=== PATIENT | male | born 1995 | race Caucasian/White ===

== ENCOUNTER 2016-09-05 17:32 | Emergency (ER) | payer BC ==
[~2016-09-05] VITALS: Ht 177.8 cm; Wt 70.3 kg
[~2016-09-05 17:32] MED LIST: AMOX-355 PO; MPR22T TOP; SULF1TAB38 PO
--- NOTE | 2016-09-05 18:09 | ED General ---
General Chief Complaint: Fever-Adult/Adol Stated Complaint: FEVER Nursing Triage Note: AMBULATED TO ROOM 05 WITH COMPLAINTS OF FEVER STARTING YESTERDAY. STATES HE WAS XOCHITL ON TUESDAY AND DID NOT FEEL WELL AFTER. STATES HE HAD A TICK BITE TO THE PENIS WITHIN THE LAST WEEK THAT HE HAD TO PULL OFF BUT DOES NOT THINK IT WAS ATTACHED LONG. ANTIPYRITIC TAKEN THIS AM. PT COMPLAINS OF A HEADACHE. Nursing Sepsis Screen: No Definite Risk Source of Information: Patient Exam Limitations: No Limitations History of Present Illness Time Seen by Provider: 18:09 Initial Comments 21 yo male patient presents to the ED with c/o fever of 105 degrees F starting last night. States 1 wk ago he pulled a tick from his penis. Throughout the week he was xochitl and did have 1 episode of dizziness. Took tylenol this AM. Does have a headache, but denies neck pain. denies rash. Timing/Duration: 1 Day, Getting Worse Modifying Factors: worse with Other (denies modifying factors) Allergies and Home Medications Allergies Coded Allergies: clindamycin (Unverified Allergy, Unknown, 09/05/16) Uncoded Allergies: ENVIRONMENTAL (Allergy, Mild, 02/22/09) Home Medications Doxycycline Hyclate 100 Mg Capsule, 100 MG PO BID, #28 Ref 0 Prescribed by: MARÍA ELENA ZIMMERMAN on 09/05/162115 Ondansetron 8 Mg Tab.rapdis, 8 MG PO Q6H PRN for NAUSEA/VOMITING-1ST LINE, #10 Ref 0 Prescribed by: MARÍA ELENA ZIMMERMAN on 09/05/162115 Constitutional: see HPI, chills, dizziness (1 episode Tuesday.), fever, malaise , weakness EENTM: no symptoms reported Respiratory: No cough, No phlegm, No short of breath Cardiovascular: no symptoms reported Gastrointestinal: No abdominal pain, No diarrhea, No nausea, No vomiting Genitourinary: No decreased output, No dysuria, No frequency, No hematuria, No pain Musculoskeletal: other (generalized bodyaches) Skin: see HPI, No lesions, No lumps, No pruritus, No rash Psychiatric/Neurological: Headache, Denies Numbness, Denies Paresthesia, Denies Seizure, Denies Tingling, Denies Weakness All Other Systems Reviewed Negative Unless Noted: Yes (Negative excepted noted.) Past Lwrqvtn-Tafmtj-Gdkunt Hx Patient Social History Alcohol Use: Denies Use Recreational Drug Use: No Smoking Status: Never a Smoker Recent Foreign Travel: No Contact w/Someone Who Travel: No Recent Infectious Disease Expo: No Immunizations Up To Date Tetanus Booster (TDap): Less than 5yrs Seasonal Allergies Seasonal Allergies: Yes Surgeries HX Surgeries: No Respiratory Hx Respiratory Disorders: No Cardiovascular Hx Cardiac Disorders: Yes (SVT AT ) Neurological Hx Neurological Disorders: No Genitourinary Hx Genitourinary Disorders: No Gastrointestinal Hx Gastrointestinal Disorders: No Musculoskeletal Hx Musculoskeletal Disorders: No Endocrine Hx Endocrine Disorders: No HEENT HX ENT Disorders: No Cancer Hx Cancer: No Psychosocial Hx Psychiatric Problems: No Integumentary HX Skin/Integumentary Disorder: No Blood Transfusions Hx Blood Disorders: No Reviewed Nursing Assessment Reviewed/Agree w Nursing PMH: Yes Family Medical History Significant Family History: No Pertinent Family Hx Physical Exam-Suspected Sepsis Physical Exam Vital Signs Vital Sign - Last 12Hours 09/05/16 17:40 Temp 104.2 Pulse 91 Resp 18 B/P (MAP) 129/73 Pulse Ox 99 Capillary Refill : Less Than 3 Seconds Blood Pressure Mean: 91 General Appearance: No Apparent Distress, WD/WN HEENT: PERRL/EOMI, TMs Normal, Normal ENT Inspection, Pharynx Normal Neck: Full Range of Motion, Non Tender, Supple, Lymphadenopathy (L), Lymphadenopathy (R), No Other (negative for nuchal rigidity.) Respiratory: Lungs Clear, Normal Breath Sounds, No Respiratory Distress Cardiovascular: Regular Rate, Rhythm, No Edema, No Murmur, Normal Peripheral Pulses Gastrointestinal: Normal Bowel Sounds, No Organomegaly, Non Tender, Soft, No Distended Back: Normal Inspection, No CVA Tenderness Extremity: Normal Capillary Refill, Normal Inspection Neurologic/Psychiatric: Alert, Oriented x3, No Motor/Sensory Deficits, Normal Mood/Affect, welt treater II-XII Norm as Tested Skin: normal color, warm/dry Focused Exam Lactic Acid Level Progress/Results/Core Measures Suspected Sepsis Recent Fever Within 48 Hours: Yes Infection Criteria Present: None New/Unexplained Altered Menta: No Sepsis Screen: No Definite Risk Sepsis Diagnosis: SIRS Temperature:104.2 Pulse: 91 Respiratory Rate: 18 Laboratory Tests 09/05/16 18:10: White Blood Count 2.2L Blood Pressure 129 /73 Mean: 91 Laboratory Tests 09/05/16 18:10: Creatinine 0.96, INR Comment 1.3, Platelet Count 107L, Total Bilirubin 1.2H Results/Orders Lab Results Laboratory Tests Test 09/05/16 17:19 09/05/16 18:10 09/05/16 19:00 Range/Units White Blood Count 2.2 L 4.3-11.0 10^3/uL Red Blood Count 4.97 4.35-5.85 10^6/uL Hemoglobin 14.5 13.3-17.7 G/DL Hematocrit 42 40-54 % Mean Corpuscular Volume 85 80-99 FL Mean Corpuscular Hemoglobin 29 25-34 PG Mean Corpuscular Hemoglobin Concent 34 32-36 G/DL Red Cell Distribution Width 13.3 10.0-14.5 % Platelet Count 107 L 130-400 10^3/uL Mean Platelet Volume 10.3 7.4-10.4 FL Neutrophils (%) (Auto) 62 42-75 % Lymphocytes (%) (Auto) 20 12-44 % Monocytes (%) (Auto) 17 H 0-12 % Eosinophils (%) (Auto) 1 0-10 % Basophils (%) (Auto) 1 0-10 % Neutrophils # (Auto) 1.3 L 1.8-7.8 X 10^3 Lymphocytes # (Auto) 0.4 L 1.0-4.0 X 10^3 Monocytes # (Auto) 0.4 0.0-1.0 X 10^3 Eosinophils # (Auto) 0.0 0.0-0.3 10^3/uL Basophils # (Auto) 0.0 0.0-0.1 10^3/uL Erythrocyte Sedimentation Rate 4 0-15 MM/HR Prothrombin Time 15.6 H 12.2-14.7 SEC INR Comment 1.3 0.8-1.4 Activated Partial Thromboplast Time 34 24-35 SEC Sodium Level 136 135-145 MMOL/L Potassium Level 3.9 3.6-5.0 MMOL/L Chloride Level 102 98-107 MMOL/L Carbon Dioxide Level 25 21-32 MMOL/L Anion Gap 9 5-14 MMOL/L Blood Urea Nitrogen 13 7-18 MG/DL Creatinine 0.96 0.60-1.30 MG/DL Estimat Glomerular Filtration Rate > 60 BUN/Creatinine Ratio 14 Glucose Level 103 70-105 MG/DL Lactic Acid Level 0.65 0.50-2.00 MMOL/L Calcium Level 8.8 8.5-10.1 MG/DL Total Bilirubin 1.2 H 0.1-1.0 MG/DL Aspartate Amino Transf (AST/SGOT) 35 H 5-34 U/L Alanine Aminotransferase (ALT/SGPT) 31 0-55 U/L Alkaline Phosphatase 57 40-136 U/L Total Creatine Kinase 98 30-200 U/L C-Reactive Protein High Sensitivity 1.70 H 0.00-0.50 MG/DL Total Protein 6.7 6.4-8.2 G/DL Albumin 3.9 3.2-4.5 G/DL Urine Color YELLOW Urine Clarity CLEAR Urine pH 7 5-9 Urine Specific [place] 1.010 L 1.016-1.022 Urine Protein 1+ H NEGATIVE Urine Glucose (UA) NEGATIVE NEGATIVE Urine Ketones 1+ H NEGATIVE Urine Nitrite NEGATIVE NEGATIVE Urine Bilirubin NEGATIVE NEGATIVE Urine Urobilinogen 4 H NORMAL MG/DL Urine Leukocyte Esterase 1+ H NEGATIVE Urine RBC (Auto) 2+ H NEGATIVE Urine RBC 5-10 H /HPF Urine WBC RARE /HPF Urine Squamous Epithelial Cells NONE /HPF Urine Crystals NONE /LPF Urine Bacteria NEGATIVE /HPF Urine Casts NONE /LPF Urine Mucus NEGATIVE /LPF Urine Culture Indicated NO My Orders Orders - MARÍA ELENA ZIMMERMAN Cbc With Automated Diff (09/05/16 18:08) Comprehensive Metabolic Panel (09/05/16 18:08) Lactic Acid Analyzer (09/05/16 18:08) Blood Culture (09/05/16 18:08) Sputum Culture (09/05/16 18:08) Ua Culture If Indicated (09/05/16 18:08) Protime With Inr (09/05/16 18:08) Partial Thromboplastin Time (09/05/16 18:08) Chest 1 View, Ap/Pa Only (09/05/16 18:08) Acetaminophen Tablet (Tylenol Tablet) (09/05/16 18:15) Saline Lock/Iv-Start (09/05/16 18:08) Ekg Tracing (09/05/16 18:08) Ns Iv 1000 Ml (Sodium Chloride 0.9%) (09/05/16 18:15) Vital Signs Adult Sepsis Patie Q1HR (09/05/16 18:08) Remove Rings In Anticipation O (09/05/16 18:08) Ondansetron Injection (Zofran Injectio (09/05/16 18:30) Tick Panel With Lyme Eia (09/05/16 18:39) Doxycycline Injection (Vibramycin Inject (09/05/16 18:45) Creatine Kinase (09/05/16 19:39) Hs C Reactive Protein (09/05/16 19:39) Erythrocyte Sedimentation Rate (09/05/16 19:39) Ketorolac Injection (Toradol Injection) (09/05/16 21:11) Medications Given in ED Current Medications Medications Dose Ordered Sig/Robson Route Start Time Stop Time Status Last Admin Dose Admin Acetaminophen 1,000 mg ONCE PRN PO 09/05/16 18:15 09/05/16 18:25 DC 09/05/16 18:24 1,000 MG Doxycycline Hyclate 100 mg/ Sodium Chloride 100 ml @ 100 mls/hr ONCE ONCE IV 09/05/16 18:45 09/05/16 19:44 DC 09/05/16 19:22 100 MLS/HR Sodium Chloride 2,000 ml @ 1,000 mls/hr PRN PRN IV 09/05/16 18:15 09/05/16 18:25 1,000 MLS/HR Vital Signs/I&O Vital Sign - Last 12Hours 09/05/16 17:40 Temp 104.2 Pulse 91 Resp 18 B/P (MAP) 129/73 Pulse Ox 99 Capillary Refill : Less Than 3 Seconds Blood Pressure Mean: 91 ECG Initial ECG Impression Date: September 05, 2016 Initial ECG Impression Time: 18:20 Initial ECG Rate: 82 Initial ECG Rhythm: Normal Sinus Initial ECG Intervals: Normal Initial ECG Impression: Normal Initial ECG Comparisson: No Previous ECG Available Comment sinus rhythm. no STEMI or arrhythmia. ECG reviewed with Dr. Car. Diagnostic Imaging Diagonstic Imaging: Xray Plain Films/CT/US/NM/MRI: chest Comments FINDINGS: A portable upright view of the chest demonstrates the lungs to be clear. The heart, mediastinum, pulmonary vascularity and visualized bony thorax are normal. IMPRESSION: Normal chest. Dictated by: Dictated on workstation # [id number] Reviewed: Reviewed by Me (radiology report reviewed by me) Departure Communication Progress Notes 2100 patient case discussed with Dr. Flores. Dr. Flores recommends [facility] to home with oral doxycycline and f/u with Dr. Desai for recheck early this week. Laboratory findings, diagnostic study findings, and recommendations by Dr. Flores were discussed with the patient. Patient reports improvement in symptoms with IVF and medications. Patient does have a temp of 100.6. patient will be given 30 mg of toradol IV prior to discharge. All return precautions were discussed with the patient as well as described in the discharge instructions of this report. Patient voices understanding and agrees with the treatment plan. Patient ambulated from the emergency department without difficulty. Impression Impression: Primary Impression: Fever Additional Impressions: Leukopenia Tick bite Volume depletion Disposition: HOME, SELF-CARE Condition: Improved Departure-Patient Inst. Decision time for Depature: 21:14 Referrals: TED DESAI MD (PCP/Family) Primary Care Physician Patient Instructions: Dehydration, Adult (DC), Fever, Adult (DC), Tickborne Encephalitis (DC) Add. Discharge Instructions: All discharge instructions reviewed with patient and/or family. Voiced understanding. Medications as instructed. Tylenol Extra Strength 1000 mg by mouth every 6 hours as needed for pain, headache, or fever. Ibuprofen 800 mg by mouth every 8 hours as needed for pain, headache, or fever. Push fluids. Alternate water and Gatorade/Powerade. Avoid the heat for 3-4 days. Follow-up with Dr. Desai Tuesday for recheck, call first thing Tuesday for appointment time. Return to the emergency department immediately for worsened fever, headache, neck pain, vomiting, abdominal pain, shortness of air, chest pain, difficulty swallowing, changes in behavior, changes in vision, confusion, or any other concerns. Scripts Ondansetron (Ondansetron Odt) 8 Mg Tab.rapdis 8 MG PO Q6H Y for NAUSEA/VOMITING-1ST LINE, #10 TAB 0 Refills Prov: MARÍA ELENA ZIMMERMAN 09/05/16 Doxycycline Hyclate (Doxycycline Hyclate) 100 Mg Capsule 100 MG PO BID, #28 CAP 0 Refills Prov: MARÍA ELENA ZIMMERMAN 09/05/16 Work/School Note: Work Release Form Date Seen in the Emergency Department: September 05, 2016 Return to Work: Sep 09, 2016 Restrictions: No Restrictions MARÍA ELENA ZIMMERMAN September 05, 2016 18:09
[2016-09-05] MEDS ORDERED: ACETAMINOPHEN 500 MG TAB (TYLENOL) PO PRN (18:15)
[2016-09-05] MEDS ORDERED: NS IV 1000 ML 2,000 ML IV PRN (18:15)
[2016-09-05 18:23] LABS: BASOPHILS % (AUTO) 1 % (0-10); EOSINOPHILS % (AUTO) 1 % (0-10); LYMPHOCYTES # (AUTO) 0.4 X 10^3 (1.0-4.0); LYMPHOCYTES % (AUTO) 20 % (12-44); MEAN CORPUSCULAR HEMOGLOBIN 29 PG (25-34); MEAN CORPUSCULAR HGB CONC 34 G/DL (32-36); MEAN CORPUSCULAR VOLUME 85 FL (80-99); MEAN PLATELET VOLUME 10.3 FL (7.4-10.4); MONOCYTES # (AUTO) 0.4 X 10^3 (0.0-1.0); MONOCYTES % (AUTO) 17 % (0-12); NEUTROPHILS # (AUTO) 1.3 X 10^3 (1.8-7.8); NEUTROPHILS % (AUTO) 62 % (42-75); PLATELET COUNT 107 10^3/uL (130-400); RED BLOOD COUNT 4.97 10^6/uL (4.35-5.85); RED CELL DISTRIBUTION WIDTH 13.3 % (10.0-14.5); WHITE BLOOD COUNT 2.2 10^3/uL (4.3-11.0)
[2016-09-05] MEDS ORDERED: ONDANSETRON 4 MG/2 ML (SDV) Z0FRAN IVP ONE (18:30)
[2016-09-05 18:33] LABS: INR 1.3 (0.8-1.4); PROTHROMBIN TIME PATIENT 15.6 SEC (12.2-14.7)
[2016-09-05 18:44] LABS: ALANINE AMINOTRANSFERASE 31 U/L (0-55); ALBUMIN 3.9 G/DL (3.2-4.5); ANION GAP 9 MMOL/L (5-14); ASPARTATE AMINO TRANSFERASE 35 U/L (5-34); BILIRUBIN,TOTAL 1.2 MG/DL (0.1-1.0); BLOOD UREA NITROGEN 13 MG/DL (7-18); BUN/CREATININE RATIO 14; CALCIUM 8.8 MG/DL (8.5-10.1); CARBON DIOXIDE 25 MMOL/L (21-32); CHLORIDE 102 MMOL/L (98-107); CREATININE SERUM 0.96 MG/DL (0.60-1.30); GFR ESTIMATED > 60; GLUCOSE 103 MG/DL (70-105); POTASSIUM 3.9 MMOL/L (3.6-5.0); SODIUM 136 MMOL/L (135-145); TOTAL PROTEIN 6.7 G/DL (6.4-8.2)
[2016-09-05] MEDS ORDERED: DOXYCYCLINE INJECTION 100 MG in NS (IVPB) 100 ML IV ONE (18:45)
--- NOTE | 2016-09-05 18:45 | Diagnostic Imaging Report ---
INDICATION: Fever since last night. COMPARISON STUDIES: None. FINDINGS: A portable upright view of the chest demonstrates the lungs to be clear. The heart, mediastinum, pulmonary vascularity and visualized bony thorax are normal. IMPRESSION: Normal chest. Dictated by: Dictated on workstation # [id number]
[2016-09-05 19:29] LABS: BILIRUBIN,URINE NEGATIVE (NEGATIVE); KETONES,URINE 1+ (NEGATIVE); LEUKOCYTE ESTERASE ,URINE 1+ (NEGATIVE); NITRITE,URINE NEGATIVE (NEGATIVE); PH,URINE 7 (5-9); PROTEIN,URINE 1+ (NEGATIVE); UROBILINOGEN,URINE 4 MG/DL (NORMAL)
[2016-09-05 19:37] LABS: WBC,URINE RARE /HPF
[2016-09-05 20:06] LABS: hs C REACTIVE PROTEIN 1.7 MG/DL (0.00-0.50)
[2016-09-05] MEDS ORDERED: KETOROLAC 30 MG/ML VIAL IVP STA (21:11)
[2016-09-05] MEDS ORDERED: ONDA8TAB13 PO (21:16)
[2016-09-05] MEDS ORDERED: DOXY100C2 PO (21:16)
[2016-09-05 21:35] VITALS: BP 116/72
[2016-09-08 13:15] LABS: LYME AB G M 0.04 Index (0.00-0.89)
[2016-09-08 14:20] LABS: EHRLICHIA CHAFFEENSIS G ABY <1:16 (<1:16)
[2016-09-09 07:31] LABS: IGG ROCKY MOUNTAIN SPOTTED FEV <1:16 (<1:16); IGM ROCKY MOUNTAIN SPOTTED FEV <1:10 (<1:10); LYME AB INTERP Negative (Negative); TULAREMIA ANTIBODY <1:20
== END 2016-09-05 21:35 | disposition home or self-care (01) ==
LOC: EDUNIT# 17:32 → ER 17:35
DX: R50.9 Fever, unspecified (principal); D72.819 Decreased white blood cell count, unspecified; E86.9 Volume depletion, unspecified; R59.0 Localized enlarged lymph nodes; S30.862A Insect bite (nonvenomous) of penis, initial encounter; W57.XXXA Bitten or stung by nonvenomous insect and other nonvenomous arthropods, initial encounter; Y99.8 Other external cause status
CPT/HCPCS: 36415; 71010; 80053; 81000; 82550; 83605; 85025; 85610; 85652; 85730; 86141; 86618; 86666; 86668; 86757; 87040; 93005

== ENCOUNTER 2022-07-17 19:17 | Emergency (ER) | payer BC ==
[~2022-07-17] VITALS: Ht 177.8 cm; Wt 68.0 kg
[~2022-07-17 19:17] MED LIST changes: +DOXY100C5 PO; +ONDA8TAB13 PO
[2022-07-17] MEDS ORDERED: ONDANSETRON 4 MG (ZOFRAN) ORAL DISSOLVE TAB PO ONE (19:45)
--- NOTE | 2022-07-17 19:45 | ED Abdominal Pain ---
General Chief Complaint: Abdominal/GI Problems Stated Complaint: VOMITING/DIARRHEA/FEVER Nursing Triage Note: reports vomitting, diarrhea, fever since 1700 after eating at [employer] concerned for food poisoning. Source of Information: Patient Exam Limitations: No Limitations History of Present Illness Date Seen by Provider: Jul 17, 2022 Time Seen by Provider: 19:42 Initial Comments Patient is a 27-year-old male who presents to the ED for vomiting and diarrhea. This started around 5 PM. States he had 2 episodes of vomiting and at least 2 episodes of diarrhea. Denies of any hematemesis, hematochezia, bile. Symptoms started after a few hours after eating [employer] Concern for food poisoning. On arrival he states symptoms appear to be improving. Patient was able to take a small sip of 7 up. He did have some abdominal cramping and discomfort but that has improved. States he felt weak and feverish during that time but those symptoms are improving. Denies of any chest pain, cough, shortness of breath, headache, sore throat, ear pain. Denies take any medication. Patient states symptoms have improved Allergies and Home Medications Allergies Coded Allergies: clindamycin (Unverified Allergy, Unknown, 09/05/16) Uncoded Allergies: ENVIRONMENTAL (Allergy, Mild, 02/22/09) Patient Home Medication List Home Medication List Reviewed: Yes Ondansetron (Ondansetron Odt) 4 Mg Tab.rapdis, 4 MG SL Q4H PRN for NAUSEA/VOMITING Prescribed by: BITA CAZARES on 07/17/221957 Discontinued Medications Doxycycline Hyclate (Doxycycline Hyclate) 100 Mg Capsule, 100 MG PO BID Discontinued Reason: No Longer Taking Prescribed by: MARÍA ELENA ZIMMERMAN on 09/05/162115 Last Action: Discontinued Ondansetron (Ondansetron Odt) 8 Mg Tab.rapdis, 8 MG PO Q6H PRN for NAUSEA/VOMITING-1ST LINE Discontinued Reason: No Longer Taking Prescribed by: MARÍA ELENA ZIMMERMAN on 09/05/162115 Last Action: Discontinued Review of Systems Review of Systems Constitutional: No chills, No diaphoresis, No malaise, No weakness EENTM: No Double Vision, No Eye Pain Respiratory: Denies Cough Cardiovascular: Denies Chest Pain Gastrointestinal: Abdominal Pain, Diarrhea, Nausea, Vomiting Genitourinary: Denies Burning, Denies Discharge, Denies Drainage, Denies Frequency Musculoskeletal: No back pain, No joint pain Skin: No change in color All Other Systems Reviewed Negative Unless Noted: Yes Past Yytqpqp-Ttuwed-Zhcjou Hx Patient Social History Tobacco Use?: No Substance use?: No Alcohol Use?: No Pt feels they are or have been: No Immunizations Up To Date Tetanus Booster (TDap): Less than 5yrs First/Initial COVID19 Vaccinat: na Seasonal Allergies Seasonal Allergies: Yes Past Medical History Surgery/Hospitalization HX: svt Surgeries: No Respiratory: No Cardiac: Yes (SVT AT ) Neurological: No Genitourinary: No Gastrointestinal: No Musculoskeletal: No Endocrine: No HEENT: No Cancer: No Psychosocial: No Integumentary: No Blood Disorders: No Family Medical History No Pertinent Family Hx Physical Exam Vital Signs Vital Signs - First Documented 07/17/22 19:32 Temp 38.1 Pulse 99 Resp 16 B/P (MAP) 117/80 (92) Pulse Ox 95 O2 Delivery Room Air Capillary Refill : Less Than 3 Seconds Height/Weight/BMI Height: 5'10.00" Weight: 155lbs. oz. [id number]; 21.00 BMI Method:Stated General Appearance: WD/WN, no apparent distress HEENT: PERRL/EOMI, normal ENT inspection, TMs normal, pharynx normal Neck: non-tender, full range of motion, supple, normal inspection Respiratory: chest non-tender, lungs clear, normal breath sounds, no respiratory distress, no accessory muscle use Cardiovascular: regular rate, rhythm, no edema, no gallop, no JVD Gastrointestinal: normal bowel sounds, non tender, soft, no organomegaly, no pulsatile mass Extremities: normal range of motion, non-tender, normal inspection, no pedal edema, no calf tenderness Back: normal inspection, no CVA tenderness, no vertebral tenderness Pelvic: normal external exam Neurologic/Psychiatric: lens generator II-XII nml as tested, no motor/sensory deficits, alert, normal mood/affect, oriented x 3 Skin: normal color Progress/Results/Core Measures Results/Orders My Orders Orders - NAVNEET PIERRE Ondansetron Oral Dissolve Tab (Zofran (07/17/22 19:45) Medications Given in ED Current Medications Medications Dose Ordered Sig/Robson Route Start Time Stop Time Status Last Admin Dose Admin Ondansetron HCl 4 mg ONCE ONCE PO 07/17/22 19:45 07/17/22 19:46 DC 07/17/22 19:47 4 MG Vital Signs/I&O 07/17/22 07/17/22 19:32 20:25 Temp 38.1 37.7 Pulse 99 93 Resp 16 16 B/P (MAP) 117/80 (92) 124/63 Pulse Ox 95 97 O2 Delivery Room Air Room Air Blood Pressure Mean: 92 Departure Communication (PCP) Reviewed previous ER visits, H&P, lab testing. Differential diagnosis of gastroenteritis, food poisoning, gastritis, colitis. Patient with acute onset of vomiting and diarrhea 2+ episodes of each after eating [employer] smoothie this evening. Nonbilious vomit without hematemesis. Denies of any bloody or mucousy stool. symptoms improved right before arrival. Patient Was able to take a small sip of 7. Patient Was given Zofran here 4 mg ODT on arrival. Patient states abdominal cramping has improved. On arrival no abdominal tenderness on palpation. no recent URI. Vital signs stable. Discussed IV fluids, CBC CMP due to the vomiting diarrhea. He states since symptoms are improving would rather observe at this time. Patient was observed without any acute changes. Tolerate p.o. fluids. Patient requesting to be discharged. Likely food pois oning versus gastroenteritis. Recommend conservative treatment at home. If any worsening symptoms return back to ED for further evaluation with Impression Primary Impression: Vomiting and diarrhea Disposition: 01 HOME, SELF-CARE Condition: Stable Departure-Patient Inst. Decision time for Depature: 19:58 Referrals: [facility] [place],LOCAL PHYSICIAN (PCP) Primary Care Physician Patient Instructions: Nausea and Vomiting, Adult Add. Discharge Instructions: Recommend clear liquids. If any worsening symptoms return back to ED. Zofran for nausea. All discharge instructions reviewed with patient and/or family. Voiced understanding. Scripts Ondansetron (Ondansetron Odt) 4 Mg Tab.rapdis 4 MG SL Q4H PRN for NAUSEA/VOMITING, #6 TAB Prov: NAVNEET PIERRE 07/17/22 NAVNEET PIERRE Jul 17, 2022 19:45
[2022-07-17] MEDS ORDERED: ONDA4TAB11 SL (19:58)
[2022-07-17 20:25] VITALS: BP 124/63
== END 2022-07-17 20:28 | disposition home or self-care (01) ==
LOC: EDUNIT# 19:17 → ER 19:19
DX: R11.2 Nausea with vomiting, unspecified (principal); R19.7 Diarrhea, unspecified; Z28.310 Unvaccinated for COVID-19
CPT/HCPCS: 99283